=== PATIENT | female | born 1960 | race Two or more races ===

== ENCOUNTER → 2017-01-25 | Outpatient (CLI) | payer OTHER ==
--- NOTE | 2017-01-26 03:30 | HKNOTE ---
DATE OF SERVICE: 01/25/2017 MAIN COMPLAINT: The patient is a 56-year-old female who complains of pain in both knees, worse on t he left side. HISTORY OF MAIN COMPLAINT: The patient developed pain in her left knee about a year ago without any history of injury. She saw Dr. Reynoso in [place]. He gave her a cortisone injection into the le ft knee. Her GP ordered MRI scans of both knees which has been done on 06/20/2016. The MRI showed that she had a torn meniscus in both knees. She now comes to see me on the recommendation of at least 3 of my former patients. PRESENT COMPLAINTS: The left knee does not swell. She does get sudden stabs of pain into the knee, "like a knife" when walking. When this happens, she has to stop momentarily until she can get walk ing again. She is not sure if the knee locks. This happens at least once every day. The pain is generally moderate but is severe when she gets the stabbing pain in the knee. Pain is a ggravated by walking, weightbearing and stair climbing. The right knee has similar symptoms, but to a lesser degree. The patient has had acupuncture treatments to the knee and this has helped somewhat. She had a rece nt episode of quite severe pain in her lower back which was treated with acupuncture. On a level johnston rface, she can walk as far as she likes. She does not use a walking aid. She does not limp. PAST ORTHOPEDIC HISTORY: Arthroscopic labral repair of the left hip by Dr. Mares in 2017. PRIOR CORTISONE INTAKE: One injection as noted above. ALCOHOL INTAKE: Socially. OTHER JOINT PROBLEMS: Intermittently gets pain in the lower back. BLOOD TESTS FOR ARTHRITIS: None. PRIOR INJURIES TO HIPS OR KNEES: None. WORK STATUS: The patient works in sales at [email or web address]. She has to be on her feet approximately 9 hours a day. PAST MEDICAL HISTORY: Negative. PAST SURGICAL HISTORY: Negative. ALLERGIES: NONE. MEDICATIONS: None listed. SYSTEMS REVIEW: Prone to headaches, heartburn, varicose veins, otherwise negative. HABITS: The patient does not smoke. She drinks on social occasions. CONSERVATION EDUCATOR: Dr. Jg Lawrence, [place]. PHYSICAL EXAMINATION GENERAL: A delightful, youthful, fit looking 56-year-old female. VITAL SIGNS: Height 5 foot 4 inches, weight 130 pounds, blood pressure 120/60, temperature 98.8. GAIT: The patient walks without a walking aid. Her gait is normal. HIPS: Both hips have full range of motion without pain. NEUROLOGIC: Motor examination reveals no muscle deficit in the lower extremities. Deep tendon refl exes Right knee jerk plus, left knee jerk plus, right ankle jerk plus, left ankle jerk plus. Straig ht leg raising is negative bilaterally at 80 degrees. NEUROLOGIC: Motor examination reveals no muscle deficit in the lower extremities. Deep tendon refle xes in the lower extremities: Right knee jerk plus, left knee jerk plus, right ankle jerk plus, lef t ankle jerk plus. Straight leg raising is negative bilaterally at 80 degrees. Lasegue and ZOFIA ruby ts are negative. LEFT KNEE: 1+ effusion, tender over the medial joint line, pain on forced extension and forced flex ion. RIGHT KNEE: The right knee shows normal alignment. Active and passive extension is 0 degrees. Activ e and passive flexion is 135 degrees. The medial and lateral collateral ligaments and cruciate ligam ents are intact. Manjeet test is negative. There is no effusion, tenderness, scarring, crepitus, or cysts. The patella tracks normally. There is no tenderness on the articular surface of the patella o r in the patellar groove. The Q angle is normal. IMAGING: Plain x-rays of her knees brought with her on a disk from an outside source (recent) were reviewed. These show mild narrowing of the medial compartment and lateral compartment of both knees . Both patellas track laterally. (Note, the patient has no history of patellofemoral problems as a child.) An MRI scan of the left knee obtained on 06/20/[address] Reid as showing "horizontal oblique tear of the posterior horn of the medial meniscus. Small amount of joint fluid. Mild chond romalacia of the patella." An MRI scan of the right knee obtained on the same date is reported by Dr. Slade Reid as showing " horizontal oblique tear of the posterior horn of the medial meniscus. Small amount of joint fluid. Mild chondromalacia of the patella." DISCUSSION: The patient has some of the symptoms suggestive of an internal derangement of the left knee. The x-rays show minimal degenerative changes. The MRI scans show reports that are absolutely identical for the 2 knees which is highly in probable (possibly typographical error or radiologist fell asleep while dictating). MANAGEMENT: The patient is being referred for an MRI scan of the left knee. Further treatment will depend upon the findings. We briefly discussed the anatomy of the meniscus and pathology of the meniscus. Arthroscopic surger y was briefly touched on. The patient will be called with the results of the MRI as soon as it is a vailable. Dictated By: ANA GOMEZ/TEVIN Conf#: [id number] DID#: [id number]
== END | disposition home or self-care (01) ==
LOC: HKI 15:16
DX: M25.561 Pain in right knee (principal); M25.562 Pain in left knee
CPT/HCPCS: G0463

== ENCOUNTER → 2017-02-08 | Outpatient (CLI) | payer OTHER ==
--- NOTE | 2017-02-08 22:31 | HKNOTE ---
DATE OF SERVICE: The patient comes in with MRI scan for review. The most recent MRI obtained on 01/31/2017, was tonya evans. Dr. Mike's report makes no mention of a torn meniscus. He does, however, mention a disc oid lateral meniscus, which was not mentioned on the first MRI scan. The patient's symptoms were again reviewed with her. They continue to be of concern to her and impa ct on her daily life. She gets sudden stabbing pain into the knee at least once a day. It is very difficult for her to go up and down stairs. Some days, she goes 2 days without any pain. The knee never feels unstable. The knee does not lock, does not swell. PHYSICAL EXAMINATION: LEFT KNEE: The left knee shows normal alignment. Active and passive extension is 0 degrees. Activ e and passive flexion is 135 degrees. The medial and lateral collateral ligaments and cruciate liga ments are intact. Manjeet test is negative. There is no effusion, tenderness, scarring, crepitus, or cysts. The patella tracks normally. There is no tenderness on the articular surface of the wang lla or in the patellar groove. The Q angle is normal. Clinically, today the knee is normal and not even able to find a point of tenderness anywhere around the knee. MANAGEMENT: The patient is advised that this is not a simple straightforward knee issue, but someth ing more complex. I am not able to make a diagnosis, but I am referring to my former partner, Dr. Addis Rangel, for an evaluation of her knee. My H and P as well as copies of the MRI and my recommendations are going along with the patient to Vignesh Rangel's office. Treatment will be taken over by Dr. Rangel. She was given copies of all of the above, so she can facilitate the evaluation. Dictated By: ANA GOMEZ/TEVIN Conf#: [id number] DID#: [id number]
== END | disposition home or self-care (01) ==
LOC: HKI 15:07
DX: M25.562 Pain in left knee (principal)
CPT/HCPCS: G0463